=== PATIENT | male | born 1950 | race Caucasian/White ===

== ENCOUNTER 2022-04-04 10:49 | Outpatient (CLI) | payer MEDICARE, OTHER, SELFPAY ==
[2022-04-04 11:37] LABS: Calcium 9.5 mg/dL (8.5-10.5)
[2022-04-04 11:52] VITALS: BP 137/82; PULSE 72; RESP 18; TEMP 36.6; O2SAT 95
[2022-04-04] MEDS: denosumab 60 mg SDV SUBCUT (12:04)
[2022-04-04 12:11] VITALS: BP 117/74; PULSE 67; RESP 18; TEMP 36.7; O2SAT 95
== END 2022-04-04 10:50 | disposition home or self-care (01) ==
PROVIDERS: PCP Internal Medicine; Referring Provider Nurse Practitioner; Visit Provider Nurse Practitioner
DX: M81.0 Age-related osteoporosis without current pathological fracture (principal)
CPT/HCPCS: 36415; 82040; 82310; 96372; J0897

== ENCOUNTER 2022-10-20 09:54 | Outpatient (CLI) | payer MEDICARE, OTHER, SELFPAY ==
[2022-10-20 10:45] LABS: Albumin Level 3.9 g/dL (3.5-5.2); Calcium 8.9 mg/dL (8.5-10.5)
[2022-10-20 11:45] VITALS: BP 119/74; PULSE 70; RESP 18; TEMP 36.6; O2SAT 96
[2022-10-20] MEDS: denosumab 60 mg SDV SUBCUT (11:59)
[2022-10-20 12:04] VITALS: BP 117/80; PULSE 67; RESP 18; TEMP 36.5; O2SAT 96
== END 2022-10-20 09:55 | disposition home or self-care (01) ==
LOC: ONCMED 09:54
PROVIDERS: PCP Internal Medicine; Visit Provider Nurse Practitioner
DX: M81.0 Age-related osteoporosis without current pathological fracture (principal); Z79.899 Other long term (current) drug therapy
CPT/HCPCS: 36415; 82040; 82310; 96372; J0897

== ENCOUNTER 2023-11-16 12:55 | Oncology outpatient (recurring) (ONCR) | payer MEDICARE, OTHER, SELFPAY ==
[2023-11-16 13:42] LABS: Albumin Level 3.8 g/dL (3.5-5.2); Calcium 9.1 mg/dL (8.5-10.5)
[2023-11-16] MEDS: denosumab 60 mg SDV SUBCUT (13:44)
== END 2023-12-07 23:59 | disposition home or self-care (01) ==
PROVIDERS: Nurse Practitioner; PCP Internal Medicine; Visit Provider Internal Medicine
DX: M81.0 Age-related osteoporosis without current pathological fracture (principal)
CPT/HCPCS: 36415; 82040; 82310; 96372; J0897

== ENCOUNTER 2024-05-20 12:44 | Oncology outpatient (recurring) (ONCR) | payer MEDICARE, OTHER, SELFPAY ==
[2024-05-20] MEDS: denosumab 60 mg SDV SUBCUT (13:55)
[2024-05-20 14:40] LABS: Albumin Level 3.9 g/dL (3.5-5.2); Calcium 9.1 mg/dL (8.5-10.5)
== END 2024-06-08 23:59 | disposition home or self-care (01) ==
PROVIDERS: Nurse Practitioner; PCP Internal Medicine; Visit Provider Internal Medicine
DX: M81.0 Age-related osteoporosis without current pathological fracture (principal); Z79.899 Other long term (current) drug therapy
CPT/HCPCS: 82040; 82310; 96372; J0897

== ENCOUNTER 2024-11-21 13:51 | Oncology outpatient (recurring) (ONCR) | payer MEDICARE, OTHER, SELFPAY ==
[2024-11-21 14:25] VITALS: BP 152/69; PULSE 63; TEMP 36.8; O2SAT 94
[2024-11-21] MEDS: denosumab 60 mg SDV SUBCUT (14:26)
== END 2024-12-06 23:59 | disposition home or self-care (01) ==
PROVIDERS: PCP Internal Medicine; Visit Provider Nurse Practitioner
DX: M81.0 Age-related osteoporosis without current pathological fracture (principal); Z79.899 Other long term (current) drug therapy
CPT/HCPCS: 96372; J0897

== ENCOUNTER 2025-05-15 13:45 | Oncology outpatient (recurring) (ONCR) | payer MEDICARE, OTHER, SELFPAY ==
[2025-05-15] MEDS: denosumab 60 mg SDV SUBCUT (14:18)
[2025-05-15 14:46] LABS: Albumin Level 3.9 g/dL (3.5-5.2); Calcium 9.2 mg/dL (8.5-10.5)
== END 2025-06-08 23:59 | disposition home or self-care (01) ==
PROVIDERS: PCP Internal Medicine; Visit Provider Nurse Practitioner
DX: M81.0 Age-related osteoporosis without current pathological fracture (principal); Z79.899 Other long term (current) drug therapy
CPT/HCPCS: 36415; 82040; 82310; 96372; J0897

== ENCOUNTER → 2025-06-23 08:41 | Outpatient (BNVA) | payer MEDICARE, OTHER, SELFPAY | PROVIDERS: PCP Internal Medicine; Visit Provider Dermatology | DX: L71.8 Other rosacea (principal); L72.11 Pilar cyst; D69.2 Other nonthrombocytopenic purpura; L81.4 Other melanin hyperpigmentation; D37.01 Neoplasm of uncertain behavior of lip | CPT/HCPCS: 40490; 99203 ==

== ENCOUNTER → 2025-07-10 08:32 | Outpatient (BNVA) | payer MEDICARE, OTHER, SELFPAY | PROVIDERS: PCP Internal Medicine; Visit Provider Dermatology | DX: L82.1 Other seborrheic keratosis (principal) | CPT/HCPCS: 99213 ==

== ENCOUNTER 2025-07-14 10:37 | Outpatient (CLI) | payer MEDICARE, OTHER, SELFPAY ==
--- NOTE | 2025-07-14 10:43 | CT_ITS ---
WS: [id number] LDCT LUNG CANCER SCREENING TECHNIQUE: Noncontrast CT of the chest with coronal and sagittal reformatted images. CLINICAL INFORMATION: HX OF TOBACCO USE COMPARISON: None. DLP: 119.60 mGy.cm DIvol: Mean CTDIvol: 3.20 (mGy) All CT scans at [facility] use at least one of these dose optimization techniques: automated exposure control; mA and/or kV adjustment per patient size (includes targeted exams where dose is matched to clinical indication); or iterative reconstruction. FINDINGS: Shallow inspiration. Advanced chronic emphysematous changes. No suspicious pulm parenchymal abnormalities. Aortic calcification. Coronary calcification. Mitral valve/annular calcification. No mediastinal or hilar lymphadenopathy. No axillary lymphadenopathy. Tiny esophageal hiatal hernia. Partially visualized adrenal glands are normal. LEFT upper pole renal cyst measuring 5.[address]/CT lung screening [id number] IMPRESSION: LUNG-RADS: 1-Negative FOLLOW UP: 12 Month: Continue annual screening with LDCT
== END 2025-07-14 10:38 | disposition home or self-care (01) ==
LOC: RAD 10:39
PROVIDERS: PCP Internal Medicine; Visit Provider Internal Medicine
DX: Z12.2 Encounter for screening for malignant neoplasm of respiratory organs (principal); Z87.891 Personal history of nicotine dependence; J43.9 Emphysema, unspecified; I70.0 Atherosclerosis of aorta; I34.81 Nonrheumatic mitral (valve) annulus calcification
CPT/HCPCS: 71271